=== PATIENT | female | born 1965 | race Caucasian/White ===

== ENCOUNTER 2018-11-09 14:17 | Emergency (ER) | payer SELFPAY ==
--- NOTE | 2018-11-09 16:33 | CR ---
Chest: Two views of the chest were obtained. Comparison: No previous study. Heart size and mediastinum are normal. Lungs are clear. Previous cervical spine surgery is noted. Impression: 1. Nothing acute is seen on two-view chest x-ray. Diagnostic code #2
--- NOTE | 2018-11-09 17:26 | EDM.PDOC ---
ED HPI GENERAL MEDICAL PROBLEM - General Chief Complaint: Chest Pain Stated Complaint: SOB/DIZZY/CHEST PRESSURE Time Seen by Provider: 11/09/18 14:30 Source of Information: Reports: Patient, Family (, son), RN Notes Reviewed History Limitations: Reports: No Limitations - History of Present Illness INITIAL COMMENTS - FREE TEXT/NARRATIVE: The patient states that she has had a few days of facial swelling, sinus pressure, and bilateral ear pressure. She has not had a fever. No nasal drainage. No recent halitosis. She states that she has been feeling somewhat lightheaded over the past 2 or 3 days, but that it was worse today, such that it was difficult for her to walk. Around 14:00 today she developed shortness of breath, the sensation that her heart was racing, sweatiness and clamminess, and a sensation in her chest like there was a balloon, which then extended up to her throat. No prior similar symptoms. Here in the ED, it is noted that her oxygen saturation is 100% on room air, consistent with hyperventilation. The patient states that she has a history of depression and anxiety, previously treated with both paroxetine and alprazolam, but that she abruptly stopped both of these 10 days ago. She didn't fill that the paroxetine was working, and she didn't feel that she needed the alprazolam. She had been taking 0.5 mg of alprazolam once or twice a day, for the past 3 years. The patient's PCP is Dr. Luis Carlos Ferris, in [place], however, the patient would like to establish care here in [place]. Left Chest Pain Score (Numeric/FACES): 6 - Related Data Allergies Allergy/AdvReac Type Severity Reaction Status Date / Time No Known Allergies Allergy Verified 11/09/18 14:32 Home Meds: Home Meds Ascorbic Acid [Vitamin C] 1,000 mg PO DAILY 11/09/18 [History] Biotin 10,000 mg PO DAILY 11/09/18 [History] Fish Oil/[place]-3 Fatty Acids [Fish Oil] 2 tab PO DAILY 11/09/18 [History] Magnesium 2 tab PO DAILY 11/09/18 [History] Past Medical History Cardiovascular History: Reports: High Cholesterol (untreated) Psychiatric History: Reports: Anxiety (See HPI), Depression (See HPI) Endocrine/Metabolic History: Reports: Hypothyroidism (untreated) Oncologic (Cancer) History: Reports: Cervix - Past Surgical History HEENT Surgical History: Reports: Myringotomy w Tube(s) (multiple bilateral), Tonsillectomy Female Surgical History: Reports: Endometrial Ablation Neurological Surgical History: Reports: C-Spine (ACDF) Social & Family History - Tobacco Use Smoking Status *Q: Former Smoker Years of Tobacco use: 29 Packs/Tins Daily: 2 Month/Year Tobacco Last Used: Quit around 2008 - Caffeine Use Caffeine Use: Reports: None - Alcohol Use Alcohol Use History: Yes Alcohol Use Frequency: Rarely - Recreational Drug Use Recreational Drug Use: Yes Drug Use in Last 12 Months: No Recreational Drug Type: Reports: Cocaine (last snorted around 2006), Marijuana/ Hashish (last smoked when in her 20s) - Living Situation & Occupation Living situation: Reports: , with Spouse, with Family (1 son) Occupation: Unemployed ED ROS GENERAL - Review of Systems Review Of Systems: ROS reveals no pertinent complaints other than HPI. ED EXAM, GENERAL - Physical Exam Exam: See Below Exam Limited By: No Limitations General Appearance: Alert, WD/WN, No Apparent Distress Eye Exam: Bilateral Eye: EOMI, Normal Inspection Ears: Normal External Exam, Normal Canal, Hearing Grossly Normal, Other (Clear fluid with bubbles seen behind both TMs, more obvious on the left than the right. No associated erythema.) Nose: Normal Inspection, Normal Mucosa, No Blood Throat/Mouth: Normal Inspection, Normal Lips, Normal Teeth, Normal Gums, Normal Oropharynx, Normal Voice, No Airway Compromise Head: Atraumatic, Normocephalic Neck: Normal Inspection, Supple, Non-Tender, Full Range of Motion. No: Lymphadenopathy (L), Lymphadenopathy (R) Respiratory/Chest: No Respiratory Distress, Lungs Clear, Normal Breath Sounds, No Accessory Muscle Use Cardiovascular: Normal Peripheral Pulses, Regular Rate, Rhythm, No Edema, No Gallop, No JVD, No Murmur, No Rub Peripheral Pulses: 4+: Radial (L), Radial (R) GI/Abdominal: Normal Bowel Sounds, Soft, Non-Tender, No Organomegaly, No Distention, No Abnormal Bruit, No Mass (Female) Exam: Deferred Rectal (Female) Exam: Deferred Back Exam: Normal Inspection, Full Range of Motion, NT Extremities: Normal Inspection, Normal Range of Motion, No Pedal Edema, Normal Capillary Refill Neurological: Alert, Oriented, Normal Cognition, No Motor/Sensory Deficits Psychiatric: Normal Affect Skin Exam: Warm, Dry, Intact, Normal Color, No Rash EKG INTERPRETATION EKG Date: 11/09/18 Time: 14:23 Rhythm: NSR Rate (Beats/Min): 76 [place]: Normal P-Wave: Enlarged (LAE. Borderline 1 AVB) QRS: Normal ST-T: Normal QT: Normal Comparison: NA - No Prior EKG Course - Vital Signs Last Recorded V/S: Last Vital Signs Temp 36.4 C 11/09/18 17:45 Pulse 70 11/09/18 17:45 Resp 16 11/09/18 17:45 BP 103/50 L 11/09/18 17:45 Pulse Ox 97 11/09/18 17:45 - Orders/Labs/Meds Labs: Laboratory Tests 11/09/18 11/09/18 11/09/18 Range/Units 14:40 14:40 14:40 WBC 5.66 (3.98-10.04) K/mm3 RBC 4.45 (3.98-5.22) M/mm3 Hgb 13.6 (11.2-15.7) gm/L Hct 42.0 (34.1-44.9) % MCV 94.4 (79.4-94.8) fl MCH 30.6 (25.6-32.2) pg MCHC 32.4 (32.2-35.5) g/dl RDW Std Deviation 43.4 (36.4-46.3) fL Plt Count 285 (182-369) K/mm3 MPV 9.6 (9.4-12.3) fl Neutrophils % (Manual) 62 H (40-60) % Band Neutrophils % 0 (0-10) % Lymphocytes % (Manual) 32 (20-40) % Atypical Lymphs % 1 % Monocytes % (Manual) 4 (2-10) % Eosinophils % (Manual) 1 (0.7-5.8) % Basophils % (Manual) 0 L (0.1-1.2) Platelet Estimate Adequate Plt Morphology Comment Normal RBC Morph Comment Normal D-Dimer, Quantitative 0.28 (0.19-0.50) mg/L Puncture Site ABG pH (7.35-7.45) ABG pCO2 (35.0-45.0) mmHg ABG pO2 (80.0-100.0) mmHg ABG HCO3 (22.0-26.0) meq/L ABG O2 Saturation (96.0-97.0) % ABG Base Excess (-2-2.0) Ricardo Test A-a Gradient mmHg O2 Delivery Device Sodium 140 (136-145) mEq/L Potassium 4.3 (3.5-5.1) mEq/L Chloride 103 (98-107) mEq/L Carbon Dioxide 29 (21-32) mEq/L Anion Gap 12.3 (5-15) BUN 20 H (7-18) mg/dL Creatinine 0.9 (0.55-1.02) mg/dL Est Cr Clr Drug Dosing 63.55 mL/min Estimated GFR (MDRD) > 60 (>60) mL/min BUN/Creatinine Ratio 22.2 H (14-18) Glucose 105 (74-106) mg/dL Calcium 9.6 (8.5-10.1) mg/dL Total Bilirubin 0.3 (0.2-1.0) mg/dL AST 15 (15-37) U/L ALT 31 (14-59) U/L Alkaline Phosphatase 85 (46-116) U/L Troponin I < 0.017 (0.00-0.056) ng/mL Total Protein 7.9 (6.4-8.2) g/dl Albumin 3.9 (3.4-5.0) g/dl Globulin 4.0 gm/dL Albumin/Globulin Ratio 1.0 (1-2) 11/09/18 Range/Units 15:25 WBC (3.98-10.04) K/mm3 RBC (3.98-5.22) M/mm3 Hgb (11.2-15.7) gm/L Hct (34.1-44.9) % MCV (79.4-94.8) fl MCH (25.6-32.2) pg MCHC (32.2-35.5) g/dl RDW Std Deviation (36.4-46.3) fL Plt Count (182-369) K/mm3 MPV (9.4-12.3) fl Neutrophils % (Manual) (40-60) % Band Neutrophils % (0-10) % Lymphocytes % (Manual) (20-40) % Atypical Lymphs % % Monocytes % (Manual) (2-10) % Eosinophils % (Manual) (0.7-5.8) % Basophils % (Manual) (0.1-1.2) Platelet Estimate Plt Morphology Comment RBC Morph Comment D-Dimer, Quantitative (0.19-0.50) mg/L Puncture Site Lt radial ABG pH 7.41 (7.35-7.45) ABG pCO2 41.7 (35.0-45.0) mmHg ABG pO2 68.0 L (80.0-100.0) mmHg ABG HCO3 25.6 (22.0-26.0) meq/L ABG O2 Saturation 94.3 L (96.0-97.0) % ABG Base Excess 1.2 (-2-2.0) Ricardo Test Positive A-a Gradient 14 mmHg O2 Delivery Device Room air Sodium (136-145) mEq/L Potassium (3.5-5.1) mEq/L Chloride (98-107) mEq/L Carbon Dioxide (21-32) mEq/L Anion Gap (5-15) BUN (7-18) mg/dL Creatinine (0.55-1.02) mg/dL Est Cr Clr Drug Dosing mL/min Estimated GFR (MDRD) (>60) mL/min BUN/Creatinine Ratio (14-18) Glucose (74-106) mg/dL Calcium (8.5-10.1) mg/dL Total Bilirubin (0.2-1.0) mg/dL AST (15-37) U/L ALT (14-59) U/L Alkaline Phosphatase (46-116) U/L Troponin I (0.00-0.056) ng/mL Total Protein (6.4-8.2) g/dl Albumin (3.4-5.0) g/dl Globulin gm/dL Albumin/Globulin Ratio (1-2) - Re-Assessments/Exams Free Text/Narrative Re-Assessment/Exam: 11/09/18 17:22 2-view chest x-ray is read by Dr. Fernandez as: 1. Nothing acute is seen on 2-view chest x-ray. By the patient's history, as well as by seeing small bubbles behind the tympanic membranes, the patient is suffering from sinusitis, that may include ethmoid sinusitis, which can cause disequilibrium. She does not have a sinus or middle ear infection, however. The patient's dyspnea, heart racing, diaphoresis, chest pressure, throat pressure, and hyperventilation, as evidenced by an oxygen saturation of 100%, is almost certainly related to her sudden discontinuation of alprazolam about 10 days ago. I explained to the patient that while it would have been preferable if she had never been started on alprazolam, she should also not abruptly discontinue it. That being said, since she has now gone 10 days without it, the likelihood of suffering a withdrawal seizure is now minimal, therefore I'm not recommending that she restart it. She is in agreement. I would , however, recommend that she be restarted on an antidepressant. She states that she did not like the effects of paroxetine, that fluoxetine doesn't work for her, and that she did not care for sertraline, either. I explained that if one SSRI doesn't work, that another should be tried, and that there are many, and that she needs to be patient, as many of these medications take weeks, if not months, to become effective. For today's purposes, I am recommending that she treat her sinusitis with over- the-counter oxymetazoline nasal spray, along with preservative-free nasal saline spray. I will refer her to Dr. Jules or Dr. Vazquez to discuss treatment options for her anxiety and depression. Departure - Departure Time of Disposition: 17:26 Disposition: Home, Self-Care 01 Condition: Good Clinical Impression: Sinusitis, Hyperventilation syndrome - Discharge Information *PRESCRIPTION DRUG MONITORING PROGRAM REVIEWED*: Not Applicable *COPY OF PRESCRIPTION DRUG MONITORING REPORT IN PATIENT DEMARCUS: Not Applicable Instructions: Hyperventilation, Sinusitis, Adult Referrals: Solo Dubon MD [Physician] - Forms: ED Department Discharge Additional Instructions: You were seen in the emergency room for several days of feeling lightheaded, followed by feelings of shortness of breath, sweatiness and clamminess, heart pounding, chest pressure, and throat pressure. Workup in the ER included an ECG, a chest x-ray, and blood work. Your entire workup was unremarkable. You have not suffered a heart attack. You do not have a blood clot in your lungs. You do not have pneumonia. Based on your history, physical exam, and ER tests, you likely have 2 issues: 1. Sinusitis (but not a sinus infection) 2. Heightened anxiety due to sudden discontinuation of Xanax For your sinusitis, we recommend that you purchase [id number] oxymetazoline nasal spray in a "pump mist" bottle. [place] one spray up each nostril, wait 5 minutes, then spray a second spray up each nostril. Repeat every 12 hours, for MAXIMUM of 5 days. Be aware that oxymetazoline cause you to feel jittery. We also recommended that you purchase [id number] preservative-free saline nasal spray, such as "Simply Saline" in a pressurized can. [facility] multiple sprays up each nostril several times a day. For your increased anxiety, we recommend that you follow-up with either Dr. Masoud Crouch or Dr. Vazquez in the clinic to discuss treatment options for anxiety. If any other problems, please do not hesitate to return to the ER.
== END 2018-11-09 17:45 | disposition home or self-care (01) ==
LOC: JD.ED 14:17
DX: J32.9 Chronic sinusitis, unspecified (principal); F45.8 Other somatoform disorders; Z87.891 Personal history of nicotine dependence; Z79.899 Other long term (current) drug therapy
CPT/HCPCS: 36415; 36600; 71046; 71046-26; 80053; 82803; 84484; 85007; 85027; 85379; 93005; 93010; 99283; 99285-25